=== PATIENT | female | born 1980 | race Caucasian/White ===

== ENCOUNTER → 2019-02-17 | Outpatient (CLI) | payer SELFPAY ==
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
== END ==
LOC: RAD FS 12:07
PROVIDERS: ATTEND Nurse Practitioner
DX: S09.90XA Unspecified injury of head, initial encounter (principal); V89.2XXA Person injured in unspecified motor-vehicle accident, traffic, initial encounter
CPT/HCPCS: 70450

== ENCOUNTER → 2019-04-19 | Outpatient (CLI) | payer SELFPAY ==
[2019-04-19 12:35] LABS: HEMATOCRIT 39 % (35-52); HEMOGLOBIN 13.1 G/DL (11.5-16.0); MEAN CORPUSCULAR HEMOGLOBIN 32 PG (25-34); MEAN CORPUSCULAR VOLUME 94 FL (80-99)
[2019-04-19 12:36] LABS: BASOPHILS % (AUTO) 0 % (0-10); EOSINOPHILS # (AUTO) 0.2 10^3/uL (0.0-0.3); EOSINOPHILS % (AUTO) 2 % (0-10); LYMPHOCYTES # (AUTO) 3.5 X 10^3 (1.0-4.0); LYMPHOCYTES % (AUTO) 36 % (12-44); MEAN CORPUSCULAR HGB CONC 34 G/DL (32-36); MEAN PLATELET VOLUME 9.4 FL (7.4-10.4); MONOCYTES # (AUTO) 0.6 X 10^3 (0.0-1.0); MONOCYTES % (AUTO) 6 % (0-12); NEUTROPHILS # (AUTO) 5.6 X 10^3 (1.8-7.8); NEUTROPHILS % (AUTO) 56 % (42-75); PLATELET COUNT 317 10^3/uL (130-400); RED CELL DISTRIBUTION WIDTH 13.5 % (10.0-14.5)
[2019-04-19 12:37] LABS: ERYTHROCYTE SEDIMENTATION RATE 10 MM/HR (0-20)
== END ==
LOC: LAB FS 10:22
PROVIDERS: ATTEND Nurse Practitioner
DX: M79.89 Other specified soft tissue disorders (principal); M79.605 Pain in left leg; I77.6 Arteritis, unspecified; M79.673 Pain in unspecified foot
CPT/HCPCS: 36415; 85025; 85379; 85652

== ENCOUNTER 2019-06-27 15:40 | Emergency (ER) | payer SELFPAY ==
[~2019-06-27] VITALS: Ht 164 cm; Wt 63.9 kg
[2019-06-27] MEDS ORDERED: morphine INJ 10 MG/ML 1ML (SYR OR VIAL) IVP STA ×2 (16:16→17:26)
--- NOTE | 2019-06-27 16:22 | ED General ---
General Chief Complaint: Abdominal/GI Problems Stated Complaint: ABD CRAMPING History of Present Illness Date Seen by Provider: Jun 27, 2019 Time Seen by Provider: 16:19 Initial Comments Patient presenting to emergency department for evaluation of diffuse abdominal pain worse in her lower quadrant since having a colonoscopy last Wednesday. She did her colonoscopy prep on and then had her colonoscopy Wednesday with a Dr. Watts in [facility]. She had some nausea with the pain but no fevers chills diarrhea constipation dysuria hematuria vaginal bleeding or vaginal discharge. No black or bloody stools noted. Patient is having a colonoscopy done for a family history of colon cancer and reportedly was an unremarkable colonoscopy per the patient. She does think that a polyp was removed though but won't get the biopsy results for 2 weeks. Patient appears uncomfortable but is nontoxic with normal vital signs. Allergies and Home Medications Allergies Coded Allergies: penicillin G (Verified Allergy, Unknown, 06/27/19) prednisone (Verified Allergy, Unknown, 06/27/19) Patient Home Medication List Home Medication List Reviewed: Yes Review of Systems Review of Systems Constitutional: no symptoms reported EENTM: no symptoms reported Respiratory: no symptoms reported Gastrointestinal: abdominal pain, nausea Genitourinary: no symptoms reported Musculoskeletal: no symptoms reported Skin: no symptoms reported Psychiatric/Neurological: No Symptoms Reported All Other Systems Reviewed Negative Unless Noted: Yes Past Emykief-Exosdu-Ihrnkt Hx Patient Social History Recent Foreign Travel: No Contact w/Someone Who Travel: No Physical Exam Vital Signs Vital Signs - First Documented 06/27/19 16:52 Temp 37.0 Pulse 86 Resp 20 B/P (MAP) 174/97 (122) Pulse Ox 100 O2 Delivery Room Air Capillary Refill : Height, Weight, BMI Height: '" Weight: lbs. oz. kg; BMI Method: General Appearance: No Apparent Distress, WD/WN HEENT: PERRL/EOMI Neck: Supple Respiratory: No Respiratory Distress Cardiovascular: Regular Rate, Rhythm Gastrointestinal: Soft; No Guarding, No Rebound; Tenderness (diffusely, worse in RLQ and LLQ.) Back: Normal Inspection Extremity: Normal Capillary Refill Neurologic/Psychiatric: Alert, Oriented x3 Skin: Warm/Dry Progress/Results/Core Measures Suspected Sepsis SIRS Temperature: Pulse: Respiratory Rate: Laboratory Tests 06/27/19 16:45: White Blood Count 12.3H Blood Pressure / Mean: Laboratory Tests 06/27/19 16:45: Creatinine 0.70, Platelet Count 319, Total Bilirubin 0.2 Results/Orders Lab Results Laboratory Tests Test 06/27/19 16:10 06/27/19 16:45 Range/Units Urine Color YELLOW Urine Clarity CLEAR Urine pH 6.5 5-9 Urine Specific [place] <1.005 1.016-1.022 Urine Protein NEGATIVE NEGATIVE Urine Glucose (UA) NEGATIVE NEGATIVE Urine Ketones NEGATIVE NEGATIVE Urine Nitrite NEGATIVE NEGATIVE Urine Bilirubin NEGATIVE NEGATIVE Urine Urobilinogen 0.2 NORMAL MG/DL Urine Leukocyte Esterase 1+ H NEGATIVE Urine RBC (Auto) NEGATIVE NEGATIVE Urine RBC NONE /HPF Urine WBC 2-5 /HPF Urine Squamous Epithelial Cells 5-10 /HPF Urine Crystals NONE /LPF Urine Bacteria TRACE /HPF Urine Casts NONE /LPF Urine Mucus NEGATIVE /LPF Urine Culture Indicated NO Urine Test NEGATIVE NEGATIVE White Blood Count 12.3 H 4.3-11.0 10^3/uL Red Blood Count 4.00 L 4.35-5.85 10^6/uL Hemoglobin 12.6 11.5-16.0 G/DL Hematocrit 38 35-52 % Mean Corpuscular Volume 94 80-99 FL Mean Corpuscular Hemoglobin 32 25-34 PG Mean Corpuscular Hemoglobin Concent 33 32-36 G/DL Red Cell Distribution Width 12.9 10.0-14.5 % Platelet Count 319 130-400 10^3/uL Mean Platelet Volume 9.5 7.4-10.4 FL Neutrophils (%) (Auto) 65 42-75 % Lymphocytes (%) (Auto) 25 12-44 % Monocytes (%) (Auto) 7 0-12 % Eosinophils (%) (Auto) 2 0-10 % Basophils (%) (Auto) 1 0-10 % Neutrophils # (Auto) 8.0 H 1.8-7.8 X 10^3 Lymphocytes # (Auto) 3.1 1.0-4.0 X 10^3 Monocytes # (Auto) 0.9 0.0-1.0 X 10^3 Eosinophils # (Auto) 0.2 0.0-0.3 10^3/uL Basophils # (Auto) 0.1 0.0-0.1 10^3/uL Sodium Level 141 135-145 MMOL/L Potassium Level 3.4 L 3.6-5.0 MMOL/L Chloride Level 108 H 98-107 MMOL/L Carbon Dioxide Level 22 21-32 MMOL/L Anion Gap 11 5-14 MMOL/L Blood Urea Nitrogen 9 7-18 MG/DL Creatinine 0.70 0.60-1.30 MG/DL Estimat Glomerular Filtration Rate > 60 BUN/Creatinine Ratio 13 Glucose Level 89 70-105 MG/DL Calcium Level 8.8 8.5-10.1 MG/DL Corrected Calcium 8.8 8.5-10.1 MG/DL Total Bilirubin 0.2 0.1-1.0 MG/DL Aspartate Amino Transf (AST/SGOT) 13 5-34 U/L Alanine Aminotransferase (ALT/SGPT) 11 0-55 U/L Alkaline Phosphatase 37 L 40-136 U/L Total Protein 6.6 6.4-8.2 GM/DL Albumin 4.0 3.2-4.5 GM/DL Lipase 19 8-78 U/L My Orders Orders - LORRI REYES DO Cbc With Automated Diff (06/27/19 16:16) Comprehensive Metabolic Panel (06/27/19 16:16) Lipase (06/27/19 16:16) Ua Culture If Indicated (06/27/19 16:16) Ct Abdomen/Pelvis W (06/27/19 16:16) Hcg,Qualitative Urine (06/27/19 16:16) Ns Iv 1000 Ml (Sodium Chloride 0.9%) (06/27/19 16:30) Ondansetron Injection (Zofran Injectio (06/27/19 16:30) Morphine Injection (Morphine Injection (06/27/19 16:16) Dicyclomine Injection (Bentyl Injection) (06/27/19 16:30) Iohexol Injection (Omnipaque 350 Mg/Ml 1 (06/27/19 17:00) Received Contrast (Hold Metformin- Contr (06/27/19 17:00) Ns (Ivpb) (Sodium Chloride 0.9% Ivpb Bag (06/27/19 17:00) Sodium Chloride Flush (Catheter Flush Sy (06/27/19 17:00) Potassium Chloride (Tablet) (K Dur Table (06/27/19 17:30) Morphine Injection (Morphine Injection (06/27/19 17:26) Medications Given in ED Current Medications Medications Dose Ordered Sig/Arnel Route Start Time Stop Time Status Last Admin Dose Admin Dicyclomine HCl 20 mg ONCE ONCE IM 06/27/19 16:30 06/27/19 16:31 DC 06/27/19 16:40 20 MG Iohexol 100 ml ONCE ONCE IV 06/27/19 17:00 06/27/19 17:01 DC 06/27/19 17:04 100 ML Ondansetron HCl 4 mg ONCE ONCE IVP 06/27/19 16:30 06/27/19 16:31 DC 06/27/19 16:50 4 MG Potassium Chloride 20 meq ONCE ONCE PO 06/27/19 17:30 06/27/19 17:31 DC 06/27/19 17:26 20 MEQ Sodium Chloride 10 ml NEEDED PRN IV 06/27/19 17:00 06/27/19 17:04 10 ML Sodium Chloride 100 ml ONCE ONCE IV 06/27/19 17:00 06/27/19 17:01 DC 06/27/19 17:04 80 ML Vital Signs/I&O 06/27/19 16:52 Temp 37.0 Pulse 86 Resp 20 B/P (MAP) 174/97 (122) Pulse Ox 100 O2 Delivery Room Air Capillary Refill : Progress Note : Progress Note Will check labs imaging treat pain and nausea and reassess. Will do CT to rule out perforation however this is more likely a post-polypectomy inflammatory state. According to the literature I reviewed most post polypectomy treatment is focused I conservative treatment including clear liquid diet with bowel rest as well as possible treatment to cover gram negatives if there is concern for infection. Patient's CT came back negative for acute surgical pathology however there is some incidental findings are discussed with patient including hemorrhagic cyst that is likely unrelated to her presentation given how her pain is generalized and in the setting of recent colonoscopy the post-polypectomy inflammatory state is more likely. I discussed treatment options including conservative treatments plus and minus antibiotics and she wanted to go ahead with antibiotics. I will prescribe her [place] for breakthrough pain and Zofran for nausea and recommended bowel rest. Patient's repeat abdominal exam is benign with no focal tenderness rebound or guarding says he no reason for admission or transfer to another facility for further observation and treatment. She was told to return at any time with worsening pain fevers vomiting or other general concerns. Patient aware and agreeable with plan for discharge and verbalized understanding of the need for short-term follow-up and strict ED return precautions discussed as above. Departure Impression Primary Impression: Abdominal pain Additional Impression: Nausea alone Disposition: 01 HOME, SELF-CARE Condition: Stable Departure-Patient Inst. Referrals: [facility] (PCP) Primary Care Physician NELL CLEMENTE (Family) Primary Care Physician Patient Instructions: Acute Abdomen (Belly Pain), Adult (DC) Add. Discharge Instructions: All discharge instructions reviewed with patient and/or family. Voiced understanding. Drink liquids mostly, avoid solids until you feel better. Call your GI doctor in the morning. Come back with any concerns. Thank you! Scripts Ondansetron (Ondansetron Odt) 4 Mg Tab.rapdis 4 MG PO TID PRN for NAUSEA/VOMITING-1ST LINE, #10 TAB Prov: LORRI REYES DO 06/27/19 Hydrocodone/Acetaminophen ([place] 5-325 Tablet) 1 Each Tablet 1 TAB PO Q6H for Pain MDD 10 TABS for 7 Days, #10 TAB Prov: LORRI REYES DO 06/27/19 Metronidazole (Flagyl) 500 Mg Tablet 500 MG PO BID, #14 TAB Prov: LORRI REYES DO 06/27/19 Ciprofloxacin HCl (Ciprofloxacin HCl) 500 Mg Tablet 500 MG PO BID, #14 TAB Prov: LORRI REYES DO 06/27/19 LORRI REYES DO Jun 27, 2019 16:21 POS
[2019-06-27 16:27] LABS: CLARITY,URINE CLEAR; COLOR,URINE YELLOW; PH,URINE 6.5 (5-9)
[2019-06-27 16:28] LABS: BACTERIA,URINE TRACE /HPF; BILIRUBIN,URINE NEGATIVE (NEGATIVE); GLUCOSE, URINE (UA) NEGATIVE (NEGATIVE); KETONES,URINE NEGATIVE (NEGATIVE); LEUKOCYTE ESTERASE ,URINE 1+ (NEGATIVE); NITRITE,URINE NEGATIVE (NEGATIVE); PROTEIN,URINE NEGATIVE (NEGATIVE)
[2019-06-27] MEDS ORDERED: DICYCLOMINE 10 MG/ML (BENTYL) 2 ML AMP IM ONE (16:30)
[2019-06-27] MEDS ORDERED: ONDANSETRON 4 MG/2 ML (SDV) Z0FRAN IVP ONE (16:30)
[2019-06-27] MEDS ORDERED: NS IV 1000 ML 1,000 ML IV SCH (16:30)
[2019-06-27 16:55] LABS: BASOPHILS # (AUTO) 0.1 10^3/uL (0.0-0.1); BASOPHILS % (AUTO) 1 % (0-10); EOSINOPHILS # (AUTO) 0.2 10^3/uL (0.0-0.3); EOSINOPHILS % (AUTO) 2 % (0-10); HEMATOCRIT 38 % (35-52); HEMOGLOBIN 12.6 G/DL (11.5-16.0); LYMPHOCYTES # (AUTO) 3.1 X 10^3 (1.0-4.0); LYMPHOCYTES % (AUTO) 25 % (12-44); MEAN CORPUSCULAR HEMOGLOBIN 32 PG (25-34); MEAN CORPUSCULAR HGB CONC 33 G/DL (32-36); MEAN CORPUSCULAR VOLUME 94 FL (80-99); MEAN PLATELET VOLUME 9.5 FL (7.4-10.4); MONOCYTES # (AUTO) 0.9 X 10^3 (0.0-1.0); MONOCYTES % (AUTO) 7 % (0-12); NEUTROPHILS % (AUTO) 65 % (42-75); PLATELET COUNT 319 10^3/uL (130-400); RED CELL DISTRIBUTION WIDTH 12.9 % (10.0-14.5); WHITE BLOOD COUNT 12.3 10^3/uL (4.3-11.0)
[2019-06-27] MEDS ORDERED: NS 100 ML (IVPB) BAG IV ONE (17:00)
[2019-06-27] MEDS ORDERED: HOLD METFORMIN - RECEIVED CONTRAST 20 ML VIAL IV SCH (17:00)
[2019-06-27] MEDS ORDERED: CATHETER FLUSH 10 ML SYR IV PRN (17:00)
[2019-06-27] MEDS ORDERED: IOHEXOL 350 MG/ML 100 ML (OMNIPAQUE 350) VIAL IV ONE (17:00)
[2019-06-27 17:17] LABS: ALANINE AMINOTRANSFERASE 11 U/L (0-55); ALKALINE PHOSPHATASE 37 U/L (40-136); BILIRUBIN,TOTAL 0.2 MG/DL (0.1-1.0); BUN/CREATININE RATIO 13; CALCIUM 8.8 MG/DL (8.5-10.1); CARBON DIOXIDE 22 MMOL/L (21-32); CHLORIDE 108 MMOL/L (98-107); GFR ESTIMATED > 60; GLUCOSE 89 MG/DL (70-105); LIPASE 19 U/L (8-78); POTASSIUM 3.4 MMOL/L (3.6-5.0); SODIUM 141 MMOL/L (135-145); TOTAL PROTEIN 6.6 GM/DL (6.4-8.2)
[2019-06-27] MEDS ORDERED: KCL 20 MEQ TAB (K-DUR) PO ONE (17:30)
--- NOTE | 2019-06-27 17:31 | Diagnostic Imaging Report ---
PROCEDURE: CT abdomen and pelvis with contrast. TECHNIQUE: Multiple contiguous axial images were obtained through the abdomen and pelvis after administration of intravenous contrast. Auto Exposure Controls were utilized during the CT exam to meet ALARA standards for radiation dose reduction. INDICATION: Abdominal pain and cramping for five days. Patient did take colon prep for colonoscopy, has cramping ever since. FINDINGS: Lung bases are clear. Liver appears normal. Gallbladder and bile ducts are normal. Pancreas is normal. The spleen is normal. The adrenal glands are normal. The kidneys are normal. There is normal enhancement of the abdominal organs and vessels. The stomach is not distended. The small bowel is not dilated. The colon shows a normal stool and gas pattern throughout. No evidence of obstructive process. No bowel wall thickening. The appendix is normal. There is no evidence of diverticulitis. The uterus is absent. Left ovary does show a collapsed cyst with rim enhancement measuring 1.7 cm. There is associated small amount of free fluid in the cul-de-sac. The bladder appears normal. No bony abnormalities. IMPRESSION: 1. Bowel gas pattern appears normal throughout. There is normal stool burden in the colon. No evidence of inflammatory bowel changes or obstruction. 2. The abdominal organs appear normal with the uterus absent. There is noted a collapsed enhancing cyst in the left ovary measuring 1.7 cm consistent with hemorrhagic cyst. There is also a trace of free fluid in the pelvis. Dictated by: Dictated on workstation # [id number]
[2019-06-27] MEDS ORDERED: KETOROLAC 15 MG/ML VIAL IVP ONE (17:45)
[2019-06-27] MEDS ORDERED: HYDROcodone/APAP 5 MG/325 MG (LORTAB) TAB PO ONE (17:45)
[2019-06-27] MEDS ORDERED: METR500T PO (17:47)
[2019-06-27] MEDS ORDERED: ONDA4TAB11 PO (17:47)
[2019-06-27] MEDS ORDERED: HYDR-4226 PO (17:47)
[2019-06-27] MEDS ORDERED: CIPR500T4 PO (17:47)
[2019-06-27 17:57] VITALS: BP 173/102
== END 2019-06-27 17:56 | disposition home or self-care (01) ==
LOC: EDUNIT# 15:40 → ER FS 15:41
DX: R10.31 Right lower quadrant pain (principal); R10.32 Left lower quadrant pain; R11.0 Nausea; Z88.0 Allergy status to penicillin; Z88.8 Allergy status to other drugs, medicaments and biological substances; Z80.0 Family history of malignant neoplasm of digestive organs
CPT/HCPCS: 36415; 74177; 80053; 81000; 83690; 84703; 85025; 96361; 96372; 96374; 96375; 96376

== ENCOUNTER 2022-08-17 08:30 | Emergency (ER) | payer BC, OTHER ==
[~2022-08-17] VITALS: Ht 162.5 cm; Wt 65.0 kg
[~2022-08-17 08:30] MED LIST: CIPR500T5 PO; HYDR-4226 PO; METR500T PO; ONDA4TAB11 PO
[2022-08-17 08:50] VITALS: BP 125/100
[2022-08-17] MEDS ORDERED: KETOROLAC 15 MG/ML VIAL IM ONE (09:00)
--- NOTE | 2022-08-17 09:10 | ED Fever ---
History of Present Illness General Stated Complaint: SORE THROAT Source: patient Exam Limitations: no limitations History of Present Illness Date Seen by Provider: Aug 17, 2022 Time Seen by Provider: 08:35 Initial Comments 41yoF with PMH of HTN coming in due to 1 day of fever, sore throat, and right ear pain. Temp was up to 103 this morning. She has pain with swallowing so did not take any ibuprofen or tylenol. Denies cough, n/v/d, congestion, chest pain, SOB, abd pain, weakness, numbness, rash. Did get a flu shot this year. Denies any voice changes, is able to swallow her secretions, and no neck stiffness. Allergies and Home Medications Allergies Coded Allergies: penicillin G (Verified Allergy, Unknown, 06/27/19) prednisone (Verified Allergy, Unknown, 06/27/19) Patient Home Medication List Home Medication List Reviewed: Yes Ciprofloxacin HCl (Ciprofloxacin HCl) 500 Mg Tablet, 500 MG PO BID Prescribed by: LORRI REYES on 06/27/191746 Hydrocodone/Acetaminophen (Hydrocodone/Acetaminophen 5 MG/325 MG TAB) 1 Each Tablet, 1 TAB PO Q6H Prescribed by: LORRI REYES on 06/27/191746 Metronidazole (Flagyl) 500 Mg Tablet, 500 MG PO BID Prescribed by: LORRI REYES on 06/27/191746 Ondansetron (Ondansetron Odt) 4 Mg Tab.rapdis, 4 MG PO TID PRN for NAUSEA/VOMITI NG-1ST LINE Prescribed by: LORRI REYES on 06/27/191746 Review of Systems Review of Systems Constitutional: fever EENTM: ear pain (right), throat pain; No nose congestion, No throat swelling Respiratory: no symptoms reported Cardiovascular: no symptoms reported Gastrointestinal: no symptoms reported Genitourinary: no symptoms reported Musculoskeletal: no symptoms reported Skin: no symptoms reported Psychiatric/Neurological: No Symptoms Reported Hematologic/Lymphatic: No Symptoms Reported Immunological/Allergic: no symptoms reported All Other Systems Reviewed Negative Unless Noted: Yes Past Fixqoto-Xsjoss-Rteule Hx Patient Social History Tobacco type used: Cigarettes Substance use?: No Seasonal Allergies Seasonal Allergies: No Past Medical History Surgeries: Yes Hysterectomy, Tubal Ligation Respiratory: No Cardiac: Yes Hypertension Neurological: No SERVICES EXECUTIVE History: Hysterectomy, Tubal Ligation Gastrointestinal: No Musculoskeletal: No Endocrine: No HEENT: No Cancer: No Psychosocial: Yes Depression Integumentary: No Blood Disorders: No Physical Exam Capillary Refill : Height: '" Weight: lbs. oz. kg; 23.00 BMI Method: General Appearance: WD/WN, no apparent distress Eyes: Bilateral Eye Normal Inspection HEENT: PERRL/EOMI, TM abnormal (R) (fluid but no erythema), pharyngeal erythema, tonsillar exudate, other (no trismus, normal voice, uvula midline, no obvious abscess) Neck: non-tender, full range of motion, supple, normal inspection Respiratory: chest non-tender, lungs clear, normal breath sounds, no respiratory distress, no accessory muscle use Cardiovascular: no edema, no murmur, tachycardia Gastrointestinal: normal bowel sounds, non tender, soft; No distended, No guarding, No rebound Extremities: normal range of motion, non-tender, normal inspection, no pedal edema, no calf tenderness, normal capillary refill Neurologic/Psychiatric: no motor/sensory deficits, alert, normal mood/affect Skin: normal color, warm/dry Lymphatic: other (submandibular lymphadenopathy) Progress/Results/Core Measures Suspected Sepsis SIRS Temperature: Pulse: Respiratory Rate: Blood Pressure / Mean: Results/Orders Lab Results Laboratory Tests Test 08/17/22 09:00 Range/Units Influenza Type A (RT-PCR) Not Detected Not Detecte Influenza Type B (RT-PCR) Not Detected Not Detecte SARS-CoV-2 RNA (RT-PCR) Not Detected Not Detecte Group A Streptococcus Screen POSITIVE H NEGATIVE My Orders Orders - ADAM CAVAZOS MD Influenza A And B By Pcr (08/17/22 08:56) Rapid Strep A Screen (08/17/22 08:56) Covid 19 Inhouse Test (08/17/22 08:56) Ketorolac Injection (Toradol Injection) (08/17/22 09:00) Dexamethasone Injection (Decadron Inje (08/17/22 09:00) Medications Given in ED Current Medications Medications Dose Ordered Sig/Arnel Route Start Time Stop Time Status Last Admin Dose Admin Dexamethasone Sodium Phosphate 10 mg ONCE ONCE IM 08/17/22 09:00 08/17/22 09:01 DC 08/17/22 09:07 10 MG Ketorolac Tromethamine 15 mg ONCE ONCE IM 08/17/22 09:00 08/17/22 09:01 DC 08/17/22 09:08 15 MG Vital Signs/I&O Capillary Refill : Progress Note : Progress Note 41-year-old female with above history coming in due to sore throat and fever. Patient is febrile and tachycardic on presentation. She has clinical signs of strep throat on exam with exudates, erythema, swelling that is midline, no asymmetry. No obvious abscess seen. Normal voice and swallowing secretions. Ears with fluid behind the right 1, but no erythema. Flu testing, COVID testing, and strep testing obtained. She was positive for strep a which clinically fits her picture given the lack of cough with fever and sore throat with lymphadenopathy. Otherwise well-appearing and nontoxic. I believe stable for discharge with outpatient follow-up. She was sent home with strict return precautions Departure Impression Primary Impression: Strep pharyngitis Disposition: HOME, SELF-CARE Condition: Stable Departure-Patient Inst. Decision time for Depature: 09:50 Referrals: FABIO SANTOS (PCP) Primary Care Physician MEGGAN REMY MD (Family) Primary Care Physician Patient Instructions: Strep Throat (DC) Add. Discharge Instructions: Unfortunately you do have strep throat. You will be on antibiotics for the next 10 days total (including today which you already received your antibiotic in the ER) which could cause diarrhea. Start the pill antibiotics tomorrow. Be sure to try to finish these antibiotics. Take ibuprofen and/or Tylenol as needed for fever or pain. Scripts Clindamycin HCl (Clindamycin HCl) 300 Mg Capsule 300 MG PO TID for 9 Days, #27 CAP take first dose on 08/18 Prov: ADAM CAVAZOS MD 08/17/22 Work/School Note: Work Release Form Date Seen in the Emergency Department: Aug 17, 2022 Return to Work: Aug 19, 2022 Restrictions: Return-No Fever (24hrs) ADAM CAVAZOS MD Aug 17, 2022 09:10
[2022-08-17] MEDS ORDERED: CLIN-144 PO (09:39)
[2022-08-17] MEDS ORDERED: LIDOCAINE 1% INJ 20 ML VIAL INJ ONE (09:45)
[2022-08-17] MEDS ORDERED: cefTRIAXone 1,000 MG VIAL IM ONE (09:45)
== END 2022-08-17 10:25 | disposition home or self-care (01) ==
LOC: EDUNIT# 08:30 → ER FS 08:32
DX: J02.0 Streptococcal pharyngitis (principal); R00.0 Tachycardia, unspecified; F17.210 Nicotine dependence, cigarettes, uncomplicated; Z20.822 Contact with and (suspected) exposure to COVID-19; Z88.1 Allergy status to other antibiotic agents
CPT/HCPCS: 87430; 87636; 99284